=== PATIENT | male | born 1960 | race Caucasian/White ===

== ENCOUNTER 2023-02-02 04:36 | Emergency (ER) | payer BC, SELFPAY ==
--- NOTE | ~2023-02-02 | CT_ITS ---
EXAMINATION: CT ABDOMEN AND PELVIS WITHOUT CONTRAST CLINICAL INFORMATION: Left flank pain, history of stones COMPARISON: None available. TECHNIQUE: Multidetector volumetric imaging was performed from the superior aspect of the liver through the pubic symphysis. Sagittal and coronal reformatted images were obtained on the technologist's workstation. This CT examination was performed using dose optimization techniques as appropriate, variously including the following: *Automated exposure control *Adjustment of mA and/or kV according to patient size (this includes techniques or standardized protocols for targeted exams where dose is matched to indication/reason for exam; i.e. extremities or head) *Use of iterative reconstruction technique DLP: 936 mGy-cm FINDINGS: LUNG BASES: Minimal dependent atelectasis. Coronary artery calcifications are present. LIVER, GALLBLADDER, AND BILIARY TREE: The liver is normal in size, shape, and attenuation. No focal hepatic lesion or biliary ductal dilatation is identified on this noncontrast exam. The gallbladder is unremarkable with no evidence of radiopaque gallstones, gallbladder wall thickening, or obvious pericholecystic inflammatory changes. PANCREAS: Unremarkable. SPLEEN: Unremarkable. ADRENAL GLANDS: Left adrenal gland is unremarkable. There is a low-density right adrenal nodule measuring up to 3.5 cm, consistent with a lipid rich adenoma; no follow-up recommended. KIDNEYS AND URETERS: Distal ureters are obscured due to streak artifact in the pelvis. There is moderate left hydronephrosis with a 4 mm calculus at the left ureteropelvic junction. There is perinephric stranding as well as stranding extending along the course of the left ureter, and the possibility of a distal ureteral calculus cannot be excluded in this setting. No right hydronephrosis. Several bilateral renal calculi are present, measuring up to 9 mm in the left lower pole. BLADDER: Minimally distended, not adequately assessed due to streak artifact in the pelvis. GASTROINTESTINAL TRACT: Colonic diverticulosis is noted. The small and large bowel are otherwise unremarkable without evidence of obstruction or pericolonic inflammatory change. The appendix is unremarkable. No free fluid or free air is seen. ABDOMINAL WALL: No significant hernia is appreciated. LYMPH NODES: Normal. VASCULAR: There is atherosclerotic calcification along the aorta. PELVIC VISCERA: Unremarkable. OSSEOUS STRUCTURES: Multilevel degenerative changes in the spine. Partially visualized bilateral hip arthroplasty hardware. CT/CT abdomen pelvis wo IV con IMPRESSION: 1. Moderate left hydronephrosis with a 4 mm calculus at the ureteropelvic junction. There is also stranding extending along the course of the left ureter, and the possibility of a distal ureteral calculus cannot be excluded in this setting, as the distal ureter is not adequately assessed due to streak artifact in the pelvis.. 2. Several bilateral renal calculi. 3. Coronary artery calcifications. Correlation with cardiac risk factors is recommended.
[2023-02-02 04:42] VITALS: BP 157/89; PULSE 73; RESP 20; TEMP 36.4; O2SAT 93; BMI 36.3
[2023-02-02 05:05] LABS: Hematocrit 37.5 % (42.0-52.0); Hemoglobin 13.4 g/dl (14.0-18.0); Mean Corpuscular HGB Conc 35.7 g/dl (31.0-36.0); Mean Corpuscular Hemoglobin 34.6 pg (27.0-33.0); Mean Corpuscular Volume 96.9 fL (80.0-98.0); Mean Platelet Volume 9.9 fL (9.4-12.4); Platelet Count 195 X10*3/uL (160-400); Red Blood Count 3.87 X10*6/uL (4.60-5.80); Red Cell Distribution Width 12.9 % (11.0-16.0); White Blood Count 11.8 X10*3/uL (4.8-10.8)
--- OUTSIDE RECORDS SUMMARY | 2023-02-02 05:10 | XMS_ITS | Continuity of Care Document ---
Author Name Unknown Organization [facility] Address [address] [place] [id number] Care Team Providers Care Sheet Rock Taper Helper Name Role Phone Darryn FLANAGAN, Kelvin Garcia Primary Care Physician Encounter WAT_FIN [id number] Date(s): 10/19/22 - 10/19/22 [address] [id number]- Discharge Disposition: Discharged to Home or Self Care Attending Physician: Ayush Louise MD Allergies, Adverse Reactions, Alerts No Known Medication Allergies Assessment and Plan Future Scheduled Tests Radiology* MRI Spine Lumbar w/o Contrast 10/27/22 Functional Status 10/19/22 Weight 124.4 Living Situation Home with family car e Sensory Deficits Other: NONE Medications amLODIPine 10 mg oral tablet 0.5 tab, Oral, Daily, 5 mg daily due to swelling, # 15 tab, 0 Refill(s), called to pharmacy (Rx) Start Date: 01/15/20 Status: Ordered carvedilol 25 mg oral tablet 1 tab, Oral, BID, # 60 tab, 0 Refill(s) Start Date: 10/16/22 Status: Ordered chlorthalidone 50 mg oral tablet 1 tab, Oral, Daily with brkfst, # 90 tab, 0 Refill(s) Start Date: 10/16/22 Status: Ordered Dexilant 60 mg oral delayed release capsule 1 cap, Oral, Daily, # 30 cap, 0 Refill(s) Start Date: 02/26/19 Stop Date: 01/14/20 Status: Completed Ditropan XL 10 mg/24 hr oral tablet, extended release 1 tab, Oral, Daily, # 30 tab, 0 Refill(s) Start Date: 02/26/19 Status: Ordered Flomax 0.4 mg oral capsule 1 cap, Oral, Daily after brkfst, # 30 cap, 0 Refill(s) Start Date: 02/26/19 Status: Ordered Lipitor 20 mg oral tablet 1 tab, Oral, QBedtime, # 30 tab, 0 Refill(s) Start Date: 02/26/19 Status: Ordered lisinopril 40 mg oral tablet 1 tab, Oral, Daily, # 90 tab, 0 Refill(s) Start Date: 10/16/22 Status: Ordered Multiple Vitamins oral capsule 1 cap, Oral, Daily, # 30 cap, 0 Refill(s) Start Date: 02/26/19 Status: Ordered oxyCODONE 5 mg oral tablet 1 tab, Oral, Q6h, PRN pain, moderate, for post op carpal tunnel release, # 12 tab, 0 Refill(s), 11/17/22 12:00:00 CDT, Pharmacy: [facility], 180, cm, 10/16/22 9:31:00 CDT, Height, 124.4, kg, 10/16/22 9:31:00 CDT, Weight Start Date: 10/18/22 Stop Date: 11/17/22 Status: Ordered spironolactone 50 mg oral tablet 1 tab, Oral, Daily, # 90 tab, 0 Refill(s), Pharmacy: [facility] Start Date: 01/15/20 Status: Ordered Tenormin 100 mg oral tablet 0.5 tab, Oral, Daily, 1/2 tb daily due to bradycardia, # 15 tab, 0 Refill(s), called to pharmacy (Rx) Start Date: 01/15/20 Status: Ordered terbinafine 250 mg oral tablet TAKE 1 TABLET BY MOUTH ONCE DAILY Start Date: 10/16/22 Status: Ordered Tylenol 325 mg oral tablet 2 tab, Oral, Q4h, PRN pain, mild, 0 Refill(s) Start Date: 01/15/20 Status: Ordered Zyloprim 300 mg oral tablet 0.5 tab, Oral, Daily, # 15 tab, 0 Refill(s) Start Date: 02/26/19 Status: Ordered Problem List Condition Confirmation Course Effective Dates Status Health St atus Informant BPH (benign prostatic hyperplasia) Confirmed Active patient CTS (carpal tunnel syndrome) Confirmed Active patient Dyslipidemia Confirmed Active patient Former heavy tobacco smoker Confirmed Active patient 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 Hypertension Confirmed Active patient Procedures Procedure Date Related Diagnosis Body Site Status Catheterisation of left heart 1 Completed Joint replacement 2 Compl eted 1NO STENTS 2bil hips Vital Signs Most recent to oldest [Reference Range]: 1 2 3 Temperature Temporal Artery [36.1-37.9 Deg C] 35.8 Deg C *<LLOW* (10/19/22 7:45 AM) 36.0 Deg C *LOW* (10/19/22 5:27 AM) Peripheral Pulse Rate [55-100 bpm] 59 bpm (10/19/22 9:00 AM) 62 bpm (10/19/22 8:30 AM) 62 bpm (10/19/22 8:00 AM) Respiratory Rate [12-18 br/min] 16 br/min (10/19/22 9:00 AM) 16 br/min (10/19/22 8:30 AM) 16 br/min (10/19/22 8:00 AM) Blood Pressure [90-140/65-90 mmHg] 108/74mmHg (10/19/22 8:30 AM) 105/69mmHg (10/19/22 8:00 AM) 99/62mmHg (10/19/22 7:45 AM) Height [124-244 cm] 180 cm (10/19/22 5:13 AM) 180 cm (10/16/22 9:31 AM) Body Mass Index Measured 38.4 kg/m2 (10/19/22 5:13 AM) 38.4 kg/m2 (10/16/22 9:31 AM) 38.4 kg/m2 (10/16/22 9:31 AM) Social History Social History Type Response Tobacco 1) Have You Ever Use d a Tobacco Product? Yes. 2) Tobacco Product Within Last 30 Days? No, Quit Within the Last Year. 3) Type of Tobacco Product Cigarettes. 4) Tobacco Use Frequency: Daily. 5) Avg. Cigarette Per Day 10+. 6)Start Age 21 Years. 7) Stopped Year: 2021. Nicotine Products: None. Sex Hospital Discharge Instructions Patient Education 10/19/2022 07:12:19 Anesthesia Post Op Instructions (CUSTOM) Learning About Anesthesia What is anesthesia? There are different types of anesthesia. ??? Local anesthesia. This type numbs a small part of the body. Doctors use it for simple procedures. o You get a shot in the area the doctor will work on. o You will feel some pressure during the procedure. o You may stay awake. Or you may get medicine to help you relax or sleep. ??? Regional anesthesia. This type blocks pain to a larger area of the body. It can also help relieve pain right after surgery. And it may reduce your need for other pain medicine after surgery. There are different types. They include: o Peripheral nerve block. This is a shot near a specific nerve or group of nerves. It blocks pain in the part of the body supplied by the nerve. This is often used for procedures on the hands, arms, feet, legs, or face. o Epidural and spinal anesthesia. This is a shot near the spinal cord and the nerves around it. It blocks pain from an entire area of the body, such as the belly, hips, or legs. ??? General anesthesia. This type affects the brain and the whole body. You may get it through a small tube placed in a vein (IV). Or you may breathe it in. You are unconscious and will not feel pain. During the surgery, you will be comfortable. Later, you will not remember much about the surgery. What can you expect after having anesthesia? You may feel some of the effects of anesthesia for several hours. ??? If you had local or regional anesthesia you may feel numb and have less feeling in part of yourbody. It may also take a few hours for you to be able to move and control your muscles as usual. ??? When you first wake up from general anesthesia, you may be confused. Or it may be hard to thinkclearly. This is normal. It may take some time before the effects of the anesthesia are completely gone. Other common side effects of anesthesia include: ??? Nausea and vomiting. This does not usually last long. It can be treated with medicine. ??? A slight drop in body temperature. You may feel cold and shiver when you first wake up. ??? A sore throat, if you had general anesthesia. ??? Muscle aches or weakness. ??? Feeling tired. Things to be cautious of after having anesthesia ??? Do not drive or operate machinery for 24hrs after having anesthesia, or while on Narcotics ??? Start by eating something light/bland (ex.[place]) ??? Do not make any legal decisions for 24hrs after having anesthesia ??? If possible have someone stay with you for 24hrs after having anesthesia Follow-up care is a mclain part of your treatment and safety. Be sure to make and go to all appointments. Call your doctor if you are having problems such as: ??? Fever ??? Chills ??? Bleeding ??? Nausea and vomiting (unable to keep food or drink down) ??? Pain uncontroled by pain medication ??? Unable to urinate when you need to It's also a good idea to know your test results and keep a list of the medicines you take. Surgical operation note * Ayush Louise MD: PERFORM Event Display: Operative Note Authored Date: [id number] Patient: DWIGHT PERALES MRN: [id number] Age: 62 years Sex: Male : 1960 Associated Diagnoses: None Author: Ayush Louise MD Procedure Date of Surgery Date of Surgery: 10/19/22 07:21 . Procedure Notes PROCEDURE PERFORMED: LEFT ENDOSCOPIC CARPAL TUNNEL RELEASE PREOPERATIVE DIAGNOSIS: Left carpal tunnel syndrome, unresponsive to conservative management. POSTPROCEDURE DIAGNOSIS: Left carpal tunnel syndrome, unresponsive to conservative management. SURGEON: Ayush Louise MD ESTIMATED BLOOD LOSS: Minimal. PROCEDURAL FINDINGS: Compression within the carpal canal. TOURNIQUET TIME: 22 minutes TECHNIQUE AND FINDINGS: The patient was brought to the operating room and following adequate anesthesia, the left upper extremity was prepared and draped in the usual sterile fashion. The overlying surface anatomy was outlined and a transverse incision was made in the distal wrist crease sharply through skin. The subcutaneous tissue was bluntly dissected and the palmaris longus was retracted radially. An incision and flap in the distal forearm fascia was created, elevated and retracted. The carpal canal was entered with the hamate finders, the synovial elevator, and the dilator without significant difficulty. The endoscopic carpal tunnel release device was placed into the tunnel. The undersurface of the volar carpal ligament and its distal aspect was identified in its entirety. The blade was elevated and the device retracted completing a release of the volar carpal ligament. The blade was retracted and the device placed back within the canal and a complete release was confirmed. The proximal forearm fascia was isolated and released for 2-3 cm proximally. The nerve appeared intact throughout. A retractor was utilized to confirm a complete release visually. The wound was irrigated carefully and infiltratedwith sterile Marcaine and closed in routine fashion with 4-0 Monocryl suture subcutaneous and subcuticular. Steri-Strips were applied and a sterile bulky dressing was placed. The patient tolerated the procedure well. The tourniquet was deflated. No significant complications were encountered. . Estimated Blood Loss Estimated Blood Loss: . Specimens Removed Specimens Removed. Time Out [place] Protocol: patient identity verified, site verified, side verified, procedure to be done verified, patient position verified, availability of correct implants and special equipment or special requirements verified. Surgeon Surgeon: Primary Surgeon: Ayush Louise MD . Sweater Operator(s) Sweater Operator(s): Araseli Castillo (Physician Sweater Operator) . Pre-Op Diagnosis Pre-Op Diagnosis: LEFT CARPAL TUNNEL SYNDROME . Post-Op Diagnosis Post-Op Diagnosis: LEFT CARPAL TUNNEL SYNDROME . Procedure Primary Procedure: LEFT ENDOSCOPIC CARPAL TUNNEL RELEASE . Procedure Performed Preparation and technique: see above. Complications: None. Type of Anesthesia Type of Anesthesia: Anesthesia Type: IV Regional ([place] Block) . Drains Drains: . Findings Findings: See above . Disposition Disposition: Post-op Destination: PACU II . Note * Event Display: PDF DOCUMENT Please click on link to see image. History and physical note * Ayush Louise MD: PERFORM Event Display: History and Physicals Authored Date: History and Physical Update ( H&P completed within the previous thirty days ) I reviewed the salient orthopedic portions of the History and Physical, interviewed and examined the patient prior to surgery. The patient states: No significant changes have occurred in the their condition since the History and Physical was completed. The patient, after direct questioning, reports no changes in their health condition and no new health issues since their history and physical examination was performed. I reviewed the salient features of the history and physical examination and there history and orthopedic examination continues to confirm the necessity for the planned surgical intervention. I did not repeat any of their medical examination as that has not been a part of my scope of orthopedic practice. I am leaving the ultimatedecision for medical suitability for anesthesia to the discretion of the anesthesiologist assigned to this patient???s surgical case. Patient Care team information Care Team Personnel Name: Darryn FLANAGAN, Kelvin Garcia Position: Physician - Hospitalist Member Role: Primary Care Physician Address: Address: [address] [place] [id number]
--- OUTSIDE RECORDS SUMMARY | 2023-02-02 05:10 | XMS_ITS | Continuity of Care Document ---
Author Name Unknown Organization [facility] Address [address] [place] [id number] Encounter WAT_FIN [id number] Date(s): 01/14/20 - 01/15/[address] [address]- Encounter Diagnosis Hypokalemia(Discharge Diagnosis) - 01/14/20 Chest pain(Discharge Diagnosis) - 01/14/20 Discharge Disposition: Discharged to Home or Self Care Attending Physician: Denise Martin MD Allergies, Adverse Reactions, Alerts No Known Medication Allergies Assessment and Plan Extracted from: Title:ED Note Author:Tara Woodard MD Date: 1.??Hypokalemia 2.??Chest pain Orders: Cardiac Monitoring PSO Place in Outpatient Status Request for Bed Functional Status 01/14/20 ADLs Independent 01/14/20 Bathing Assistance Completely Independe nt Dressing Assistance Completely Independe nt Grooming Assistance Completely Independe nt Toileting Assistance Completely Independ ent Prior Transfer Level Completely Independ ent Functional Feeding Completely Independe nt Mobility Function Completely Independe nt Functional Urine Complete control Functional Bowels Complete control Functional Medication Adherence Complete ly Independent Functional Telephone Usage Completely In dependent Functional Shopping Completely Independe nt Functional Prepare Food Completely Indep endent Functional Housekeeping Completely Indep endent Functional Driving Completely Independe nt Functional Finances Completely Independe nt Medications amLODIPine 10 mg oral tablet 0.5 tab, Oral, Daily, 5 mg daily due to swelling, # 15 tab, 0 Refill(s), called to pharmacy (Rx) Start Date: 01/15/20 Status: Ordered Dexilant 60 mg oral delayed release capsule 1 cap, Oral, Daily, # 30 cap, 0 Refill(s), Pharmacy: [facility] Start Date: 01/15/20 Status: Ordered Dexilant 60 mg oral delayed [...] 0 Refill(s) Start Date: 02/26/19 Status: Ordered Multiple Vitamins oral capsule 1 cap, Oral, Daily, # 30 cap, 0 Refill(s) Start Date: 02/26/19 Status: Ordered spironolactone 50 mg oral tablet 1 tab, Oral, Daily, # 90 tab, 0 Refill(s), Pharmacy: [facility] Start Date: 01/15/20 Status: Ordered spironolactone-hydrochlorothiazide 25 mg-25 mg oral tablet 1 tab, Oral, Daily, # 30 tab, 0 Refill(s) Start Date: 02/26/19 Status: Ordered Tenormin 100 mg oral tablet 0.5 tab, Oral, Daily, 1/2 tb daily due to bradycardia, # 15 tab, 0 Refill(s), called to pharmacy (Rx) Start Date: 01/15/20 Status: Ordered Tylenol 325 mg oral tablet 2 tab, Oral, Q4h, PRN pain, mild, 0 Refill(s) Start Date: 01/15/20 Status: Ordered Zyloprim 300 mg oral tablet 0.5 tab, Oral, Daily, # 15 tab, 0 Refill(s) Start Date: 02/26/19 Status: Ordered Mental Status 01/14/20 Best Verbal Response Galt Oriented Best Motor Response Galt Obeys comman ds Eye Opening Response [place] Spontaneous ly Galt Coma Score 15 Problem List Condition Effective Dates Status Health Status Inform ant GERD (gastroesophageal reflu x disease)(Confirmed) Active patient Diagnosis Diagnosis Type Effective Dates Health Status Clini yony Service Informant Hypokalemia Discharge Diagnosis 01/14/20 Chest pain Discharge Diagnosis 01/14/20 Results Laboratory List Name Date Troponin I 01/14/20 Urinalysis W Reflex Microscopic (UA W Re flex Microscopic) 01/14/20 Automated Diff 01/14/20 CBC W Differential 01/14/20 Comprehensive Metabolic Panel (CMP) D Dimer 01/14/20 Magnesium Level 01/14/20 Most recent to oldest [Reference Range]: 1 WBC [4.00-10.50 x10^3/mcL] 6.94 x10^3/mc L (01/14/20 3:31 PM) RBC [3.80-6.10 x10^6/mcL] 4.42 x10^6/mcL (01/14/20 3:31 PM) BUN [9-23 mg/dL] 16 mg/dL (01/14/20 3:31 PM) Absolute Basophils Count Auto [0.01-0.09 x10^3/mcL] 0.04 x10^3/mcL (01/14/20 3:31 PM) MCV [79.0-95.0 fL] 95.7 fL *HI* (01/14/20 3:31 PM) Urobilinogen Urine [0.2-1.0 mg/dL] 1.0 m g/dL (01/14/20 9:25 PM) Bilirubin Urine [Negative] Negative (01/14/20 9:25 PM) Ketones Urine [Negative mg/dL] Negative mg/dL (01/14/20 9:25 PM) AST [12-40 IntlUnit/L] 18 IntlUnit/L (01/14/20 3:31 PM) ALT [7-40 IntlUnit/L] 21 IntlUnit/L (01/14/20 3:31 PM) Creatinine [0.6-1.3 mg/dL] 0.9 mg/dL (01/14/20 3:31 PM) MCHC [32.0-36.0 g/dL] 35.0 g/dL (01/14/20 3:31 PM) Troponin I [0.006-0.040 ng/mL] 0.012 ng/ mL (01/14/20 10:12 PM) Leukocyte Esterase Urine [Negative] Nega tive (01/14/20 9:25 PM) Nitrite Urine [Negative] Negative (01/14/20 9:25 PM) Glucose Urine [Negative mg/dL] Negative mg/dL (01/14/20 9:25 PM) Hematocrit [34.0-50.0 %] 42.3 % (01/14/20 3:31 PM) Absolute Monocytes Count Auto [0.10-0.70 x10^3/mcL] 0.68 x10^3/mcL (01/14/20 3:31 PM) Protein Urine [Negative mg/dL] Negative mg/dL (01/14/20 9:25 PM) MCH [25.0-33.0 pg] 33.5 pg *HI* (01/14/20 3:31 PM) Hemoglobin [13.2-16.6 g/dL] 14.8 g/dL (01/14/20 3:31 PM) MPV [9.4-12.4 fL] 10.6 fL (01/14/20 3:31 PM) Specific Fowler Urine [1.005-1.030] 1.0 17 (01/14/20 9:25 PM) CO2 [21-32 mmol/L] 29 mmol/L (01/14/20 3:31 PM) Absolute Eosinophils Count Auto [0.00-0. 30 x10^3/mcL] 0.39 x10^3/mcL *HI* (01/14/20 3:31 PM) RDW [11.5-14.5 %] 12.7 % (01/14/20 3:31 PM) pH Urine [5.0-8.0] 7.5 (01/14/20 9:25 PM) Appearance Urine [Clear] Cloudy *NA* (01/14/20 9:25 PM) eGFR [>=60 mg/dL] 86 mg/dL (01/14/20 3:31 PM) Bilirubin Total [0.3-1.2 mg/dL] 1.5 mg/d L *HI* (01/14/20 3:31 PM) Chloride Level [98-107 mmol/L] 101 mmol/ L (01/14/20 3:31 PM) Magnesium Level [1.6-2.6 mg/dL] 1.8 mg/d L (01/14/20 3:31 PM) Platelet Count [150-370 x10^3/mcL] 192 x 10^3/mcL (01/14/20 3:31 PM) Potassium Level [3.5-5.1 mmol/L] 3.2 mmo l/L *LOW* (01/14/20 3:31 PM) Sodium Level [136-145 mmol/L] 137 mmol/L (01/14/20 3:31 PM) Urinalysis Microscopic Indicated? No *NA* (01/14/20 9:25 PM) Albumin Level [3.4-5.0 g/dL] 4.6 g/dL (01/14/20 3:31 PM) Blood Urine [Negative] Negative (01/14/20 9:25 PM) Glucose Level [74-106 mg/dL] 104 mg/dL (01/14/20 3:31 PM) Absolute Lymphocytes Count Auto [1.00-3. 30 x10^3/mcL] 2.38 x10^3/mcL (01/14/20 3:31 PM) NRBC Percent [0.000-1.000 %] 0.000 % (01/14/20 3:31 PM) NRBC Absolute [0.0-0.2 x10^3/mcL] 0.0 x1 0^3/mcL (01/14/20 3:31 PM) Neutrophils Percent Auto [40.0-80.0 %] 4 9.4 % (01/14/20 3:31 PM) Lymphocytes Percent Auto [20.0-52.0 %] 3 4.3 % (01/14/20 3:31 PM) Monocytes Percent Auto [0.0-10.0 %] 9.8 % (01/14/20 3:31 PM) Eosinophils Percent Auto [0.0-8.0 %] 5.6 % (01/14/20 3:31 PM) Basophils Percent Auto [0.0-2.0 %] 0.6 % (01/14/20 3:31 PM) Absolute Neutrophils Count Auto [2.18-7. 80 x10^3/mcL] 3.43 x10^3/mcL (01/14/20 3:31 PM) D Dimer [0-500 ng/mL DDU] 267 ng/mL DDU (01/14/20 3:31 PM) Calcium Level [8.7-10.4 mg/dL] 10.0 mg/d L (01/14/20 3:31 PM) Alkaline Phosphatase [46-116 IntlUnit/L] 56 IntlUnit/L (01/14/20 3:31 PM) Slide Review Not Indicated *NA* (01/14/20 3:31 PM) Est CrCl AdjBW (mL/min)-RX 111.90 mL/min 1 (01/14/20 3:31 PM) Est CrCl IBW (mL/min)-RX 91.42 mL/min 2 (01/14/20 3:31 PM) Immature Granulocyte Percent Auto [0.0-0 .5 %] 0.3 % (01/14/20 3:31 PM) Absolute Immature Granulocyte Count Auto [0.00-0.10 x10^3/mcL] 0.02 x10^3/mcL (01/14/20 3:31 PM) Anion Gap [7-16 mmol/L] 7 mmol/L (01/14/20 3:31 PM) Total Protein [5.7-8.2 g/dL] 7.2 g/dL (01/14/20 3:31 PM) Color Urine [Yellow] Yellow (01/14/20 9:25 PM) 1Result Comment: Height = 180 cm Weight= 117 kg IBW = 74.99 kg AdjBW = 91.79 kg BMI = 36.11 Creatinine = 0.9 mg/dL If BMI > 30 use Adjusted Body Weight (AdjBW) AdjBW = 0.4(ActualBW - IBW)+IBW Estimated Creatinine Clearance (ml/min) Cockcroft Gault equation: CrCl = (140 - age) x AdjBW / (Cr x 72) (x 0.85 for females) Estimate [place] body weight in (kg) Male: IBW = 50 kg + 2.3 kg for each inch over 5 ft. Female: IBW = 45.5 kg + 2.3 kg for each inch over 5 ft. This CrCl is only calculated when Creatinine result is saved, and Height and Weight information is available. Not on Wt or Ht change. 2Result Comment: Height = 180 cm Weight= 117 kg IBW = 74.99 kg Creatinine = 0.9 mg/dL Estimated Creatinine Clearance (ml/min) Cockcroft Gault equation: CrCl = (140 - age) x IBW / (Scr x 72) (x 0.85 for females) Estimate [place] body weight in (kg) Males: IBW = 50 kg + 2.3 kg for each inch over 5 feet. Females: IBW = 45.5 kg + 2.3 kg for each inch over 5 feet. If actual weight is < IBW, use the actual weight. If CrCl <=0, show Missing Data . This CrCl is only calculated when Creatinine result is saved, and Height and Weight information is available. Not on Weight or Height change. Children < 2 years old will not show Est CrCl. Vital Signs Most recent to oldest [Reference Range]: 1 2 3 Temperature Oral [36.1-37.9 Deg C] 36.7 Deg C (01/15/20 12:52 PM) 36.8 Deg C (01/15/20 7:18 AM) 36.6 Deg C (01/15/20 5:26 AM) Peripheral Pulse Rate [55-100 bpm] 58 bpm (01/15/20 12:52 PM) 54 bpm *LOW* (01/15/20 5:26 AM) 47 bpm *LOW* (01/15/20 12:42 AM) Respiratory Rate [12-18 br/min] 16 br/min (01/15/20 12:52 PM) 20 br/min *HI* (01/15/20 7:18 AM) 16 br/min (01/15/20 5:26 AM) Blood Pressure [90-140/65-90 mmHg] 132/68mmHg (01/15/20 12:52 PM) 126/75mmHg (01/15/20 7:18 AM) 133/84mmHg (01/15/20 5:26 AM) Height [124-244 cm] 180 cm (01/14/20 6:12 PM) 180 cm (01/14/20 2:49 PM) Weight 126.2 kg (01/14/20 6:12 PM) 117 kg (01/14/20 2:49 PM) Body Mass Index Measured 39 kg/m2 (01/14/20 6:12 PM) 36.1 kg/m2 (01/14/20 2:49 PM) Social History Social History Type Response Tobacco 1) Have You Ever Use d a Tobacco Product? No. Sex Hospital Discharge Instructions Patient Education 01/15/2020 15:32:22 spironolactone spironolactone Pronunciation: spir ON oh LAK tone Brand: Aldactone What is the most important information I should know about spironolactone? You should not use spironolactone if you have kidney disease, high levels of potassium in your blood, Curtis's disease (an adrenal gland disorder), if you are unable to urinate, or if you are also taking eplerenone. In animal studies, spironolactone caused certain types of cancers or tumors. It is not known whether these effects would occur in people using this medicine. Ask your doctor about your risk. What is spironolactone? Spironolactone is a potassium-sparing diuretic (water pill) that prevents your body from absorbing too much salt and keeps your potassium levels from getting too low. Spironolactone is used to diagnose or treat a condition in which you have too much aldosterone in your body. Aldosterone is a hormone produced by your adrenal glands to help regulate the salt and water balance in your body. Spironolactone also treats fluid retention (edema) in people with congestive heart failure, cirrhosis of the liver, or a kidney disorder called nephrotic syndrome. This medication is also used to treat or prevent hypokalemia (low potassium levels in the blood). Spironolactone may also be used for purposes not listed in this medication guide. What should I discuss with my healthcare provider before taking spironolactone? You should not use spironolactone if you are allergic to it, or if you have: ??? kidney disease, or if you are unable to urinate; ??? [place]'s disease (an adrenal gland disorder); ??? high levels of potassium in your blood (hyperkalemia); or ??? if you are also taking eplerenone. To make sure spironolactone is safe for you, tell your doctor if you have: ??? liver disease; ??? heart disease; ??? an electrolyte imbalance (such as low levels of magnesium in your blood); or ??? if you take an NSAID (nonsteroidal anti-inflammatory drug), cholestyramine, heparin, lithium, heart or blood pressure medication, potassium supplements, steroid medicine, or another diuretic. In animal studies, spironolactone caused certain types of tumors, some of which were cancerous. However, very high doses are used in animal studies. It is not known whether these effects would occur in people using regular doses. Ask your doctor about your risk. It is not known whether spironolactone will harm an unborn baby. Tell your doctor if you are or plan to become . Spironolactone can pass into breast milk and may harm a nursing baby. You should not breast-feed while using this medicine. How should I take spironolactone? Follow all directions on your prescription label. Do not take this medicine in larger or smaller amounts or for longer than recommended. While using spironolactone, you may need frequent blood tests. This medication can cause unusual results with certain medical tests. Tell any doctor who treats you that you are using spironolactone. If you need surgery, tell the surgeon ahead of time that you are using spironolactone. You may needto stop using the medicine for a short time. If you are being treated for high blood pressure, keep using this medication even if you feel well.High blood pressure often has no symptoms. You may need to use blood pressure medication for the rest of your life. Store at room temperature away from heat, light, and moisture. What happens if I miss a dose? Take the missed dose as soon as you remember. Skip the missed dose if it is almost time for your next scheduled dose. Do not take extra medicine to make up the missed dose. What happens if I overdose? Seek emergency medical attention or call the Poison Help line at . What should I avoid while taking spironolactone? Drinking alcohol can increase certain side effects of spironolactone. Do not use salt substitutes or low-sodium milk products that contain potassium. These products could cause your potassium levels to get too high while you are taking spironolactone. Avoid a high-salt diet. Too much salt will cause your body to retain water, which may reduce the effectiveness of this medicine. Spironolactone may impair your thinking or reactions. Be careful if you drive or do anything that requires you to be alert. Avoid becoming overheated or dehydrated during exercise and in hot weather. Follow your doctor's instructions about the type and amount of liquids you should drink. In some cases, drinking too much liquid can be as unsafe as not drinking enough. What are the possible side effects of spironolactone? Get emergency medical help if you have signs of an allergic reaction: hives; difficulty breathing; swelling of your face, lips, tongue, or throat. Stop using spironolactone and call your doctor at once if you have: ??? signs of stomach bleeding --bloody or tarry stools, coughing up blood or vomit that looks like coffee grounds; ??? high potassium --slow heart rate, weak pulse, muscle weakness or limp feeling, tingly feeling; ??? low sodium --confusion, slurred speech, hallucinations, severe weakness, loss of coordination, feeling unsteady, seizure (convulsions), fainting, shallow breathing (breathing may stop); or ??? symptoms of any electrolyte imbalance --dry mouth, increased thirst, drowsiness, lack of energy, restless feeling, confusion, nausea, vomiting, increased urination, muscle cramps or weakness, fast heart rate, little or no urinating, or feeling like you might pass out. Common side effects may include: ??? mild nausea or vomiting, diarrhea; ??? breast swelling or tenderness; ??? dizziness, headache, mild drowsiness; ??? leg cramps; or ??? impotence, difficulty having an erection. This is not a complete list of side effects and others may occur. Call your doctor for medical advice about side effects. You may report side effects to FDA at 3-148-WPZ-4142. What other drugs will affect spironolactone? Taking this medicine with other drugs that make you dizzy or lower your blood pressure can worsen these effects. Ask your doctor before taking spironolactone with a narcotic pain medicine, muscle relaxer, or medicine for anxiety or seizures. Other drugs may interact with spironolactone, including prescription and yejo-zdd-uokasso medicines, vitamins, and herbal products. Tell each of your health care providers about all medicines you usenow and any medicine you start or stop using. Where can I get more information? Your pharmacist can provide more information about spironolactone. Remember, keep this and all other medicines out of the reach of children, never share your medicines with others, and use this medication only for the indication prescribed. Every effort has been made to ensure that the information provided by [employer]. [employer]') is accurate, up-to-date, and complete, but no guarantee is made to that effect. Drug information contained herein may be time sensitive. [employer] information has been compiled for use by healthcare practitioners and consumers in the [place] and therefore [employer] does not warrant that uses outside of the [place] are appropriate, unless specifically indicated otherwise. [employer] drug information does not endorse drugs, diagnose patients or recommend therapy. [employer] drug information isan informational resource designed to assist licensed healthcare practitioners in caring for their p atients and/or to serve consumers viewing this service as a supplement to, and not a substitute for, the expertise, skill, knowledge and judgment of healthcare practitioners. The absence of a warningfor a given drug or drug combination in no way should be construed to indicate that the drug or drug combination is safe, effective or appropriate for any given patient. [employer] does not assume any responsibility for any aspect of healthcare administered with the aid of information [employer] provides. The information contained herein is not intended to cover all possible uses, directions, precautions, warnings, drug interactions, allergic reactions, or adverse effects. If you have questions about the drugs you are taking, check with your doctor, nurse or pharmacist. Copyright 1249-8896 [employer]. Version: 9.03. Revision date: 04/07/2015. 01/15/2020 15:12:41 Chest Pain: Musculoskeletal Musculoskeletal Chest Pain: Care Instructions Your Care Instructions Chest pain is not always a sign that something is wrong with your heart or that you have another serious problem. The doctor thinks your chest pain is caused by strained muscles or ligaments, inflamed chest cartilage, or another problem in your chest, rather than by your heart. You may need more tests to find the cause of your chest pain. Follow-up care is a mclain part of your treatment and safety. Be sure to make and go to all appointments, and call your doctor if you are having problems. It???s also a good idea to know your test results and keep a list of the medicines you take. How can you care for yourself at home? Take pain medicines exactly as directed. o If the doctor gave you a prescription medicine for pain, take it as prescribed. o If you are not taking a prescription pain medicine, ask your doctor if you can take an pczw-tbu-plxfbly medicine. ??? Rest and protect the sore area. ??? Stop, change, or take a break from any activity that may be causing your pain or soreness. ??? Put ice or a cold pack on the sore area for 10 to 20 minutes at a time. Try to do this every 1 to 2 hours for the next 3 days (when you are awake) or until the swelling goes down. Put a thin cloth between the ice and your skin. ??? After 2 or 3 days, apply a heating pad set on low or a warm cloth to the area that hurts. Some doctors suggest that you go back and forth between hot and cold. ??? Do not wrap or tape your ribs for support. This may cause you to take smaller breaths, which could increase your risk of lung problems. ??? Mentholated creams such as Bengay or Icy Hot may soothe sore muscles. Follow the instructions on the package. ??? Follow your doctor's instructions for exercising. ??? Gentle stretching and massage may help you get better faster. Stretch slowly to the point just before pain begins, and hold the stretch for at least 15 to 30 seconds. Do this 3 or 4 times a day. Stretch just after you have applied heat. ??? As your pain gets better, slowly return to your normal activities. Any increased pain may be a sign that you need to rest a while longer. When should you call for help? Call 911 anytime you think you may need emergency care. For example, call if: ??? You have chest pain or pressure. This may occur with: o Sweating. o Shortness of breath. o Nausea or vomiting. o Pain that spreads from the chest to the neck, jaw, or one or both shoulders or arms. o Dizziness or lightheadedness. o A fast or uneven pulse. After calling 911, chew 1 adult-strength aspirin. Wait for an ambulance. Do not try to drive yourself.??? You have sudden chest pain and shortness of breath, or you cough up blood. Call your doctor now or seek immediate medical care if: ??? You have any trouble breathing. ??? Your chest pain gets worse. ??? Your chest pain occurs consistently with exercise and is relieved by rest. Watch closely for changes in your health, and be sure to contact your doctor if: ??? Your chest pain does not get better after 1 week. Where can you learn more? Go to https://www.[employer].net/patientEd. Enter V293 in the search box to learn more about Musculoskeletal Chest Pain: Care Instructions. ?? [id number] [employer]. Care instructions adapted under license by your healthcare professional. If you have questions about a medical condition or this instruction, always ask your healthcare professional. [employer] disclaims any warranty or liability for your use of this information. Content Version: 11.0; Current as of: October 01, 2015
--- OUTSIDE RECORDS SUMMARY | 2023-02-02 05:10 | XMS_ITS | Continuity of Care Document ---
Author Name Unknown [facility] Address [address] [place] [id number] Care Team Providers Care Associate Software Application Engineer Name Role Phone Physician, PCP Unknown Primary Care Physician Un available Encounter [email or web address] [id number] Date(s): 03/01/19 - 03/01/[address] [address]- Discharge Disposition: Discharged to Home or Self Care Attending Physician: Steven Yeager MD Allergies, Adverse Reactions, Alerts No Known Medication Allergies Functional Status 03/01/19 Living Situation Home independent Medications Dexilant 60 mg oral delayed release capsule 1 cap, Oral, Daily, # 30 cap, 0 Refill(s) Start Date: 02/26/19 Status: Ordered Ditropan XL 10 mg/24 hr oral tablet, [...] 0 Refill(s) Start Date: 02/26/19 Status: Ordered spironolactone-hydrochlorothiazide 25 mg-25 mg oral tablet 1 tab, Oral, Daily, # 30 tab, 0 Refill(s) Start Date: 02/26/19 Status: Ordered Tenormin 100 mg oral tablet 1 tab, Oral, Daily, # 30 tab, 0 Refill(s) Start Date: 02/26/19 Status: Ordered Zyloprim 300 mg oral tablet 0.5 tab, Oral, Daily, # 15 tab, 0 Refill(s) Start Date: 02/26/19 Status: Ordered Problem List Condition Effective Dates Status Health Status Inform ant GERD (gastroesophageal reflu x disease)(Confirmed) Active patient Vital Signs Most recent to oldest [Reference Range]: 1 2 3 Temperature Temporal Artery [36.1-37.9 Deg C] 36.8 Deg C (03/01/19 7:45 AM) Peripheral Pulse Rate [55-100 bpm] 52 bpm *LOW* (03/01/19 9:30 AM) 51 bpm *LOW* (03/01/19 9:15 AM) 54 bpm *LOW* (03/01/19 9:00 AM) Respiratory Rate [12-18 br/min] 18 br/min (03/01/19 7:45 AM) Blood Pressure [90-140/65-90 mmHg] 165/98mmHg *HI* (03/01/19 9:30 AM) 130/81mmHg (03/01/19 9:15 AM) 141/87mmHg *HI* (03/01/19 9:00 AM) Height [124-244 cm] 177.8 cm (03/01/19 7:40 AM) Weight 118 kg (03/01/19 7:40 AM) Body Mass Index Measured 37.3 kg/m2 (03/01/19 7:40 AM) Social History Social History Type Response Tobacco 1) Have You Ever Use d a Tobacco Product? No. Sex Hospital Discharge Instructions Patient Education 03/01/2019 10:17:53 EGD (Upper Endoscopy): Post-op Upper GI Endoscopy: What to Expect at Home Your Recovery After you have an endoscopy, you will stay at the hospital or clinic for 1 to 2 hours. This will allow the medicine to wear off. You will be able to go home after your doctor or nurse checks to make sure you are not having any problems. You may have to stay overnight if you had treatment during the test. You may have a sore throat fora day or two after the test. This care sheet gives you a general idea about what to expect after the test. How can you care for yourself at home? Activity ??? Rest as much as you need to after you go home. ??? You should be able to go back to your usual activities the day after the test. Diet ??? Follow your doctor's directions for eating after the test. ??? Drink plenty of fluids (unless your doctor has told you not to). Medications ??? If you have a sore throat the day after the test, use an [id number]-ihbjrox spray to numb your throat. Follow-up care is a mclain part of your treatment and safety. Be sure to make and go to all appointments, and call your doctor if you are having problems. It's also a good idea to know your test resultsand keep a list of the medicines you take. When should you call for help? Call 911 anytime you think you may need emergency care. For example, call if: ??? You passed out (lost consciousness). ??? You cough up blood. ??? You vomit blood or what looks like coffee grounds. ??? You pass maroon or very bloody stools. Call your doctor now or seek immediate medical care if: ??? You have trouble swallowing. ??? You have belly pain. ??? Your stools are black and tarlike or have streaks of blood. ??? You are sick to your stomach or cannot keep fluids down. Watch closely for changes in your health, and be sure to contact your doctor if: ??? Your throat still hurts after a day or two. ??? You do not get better as expected. Where can you learn more? Go to https://www.[employer].net/patientEd. Enter J454 in the search box to learn more about Upper GI Endoscopy: What to Expect at Home. ?? [id number] [employer]. Care instructions adapted under license by your healthcare professional. If you have questions about a medical condition or this instruction, always ask your healthcare professional. [employer] disclaims any warranty or liability for your use of this information. Content Version: 11.0; Current as of: March 26, 2015
--- NOTE | 2023-02-02 05:13 | ED_ITS ---
HPI - Abdominal Pain General Chief Complaint: Abdominal Pain Stated Complaint: ?Kidney stones Time Seen by Provider: 02/02/23 05:05 Source: patient Mode of arrival: ambulatory Limitations: no limitations History of Present Illness HPI narrative: Patient comes in the emergency room complaining of left-sided flank pain started approximately 8 hours ago. Patient states that he has not had any hematuria or dysuria. Patient complaining of nausea and chills. Patient states that 15 years ago he had kidney stones 3 times, states the pain is similar. Related Data Previous Rx's Medication Instructions Recorded acetaminophen 500 mg tablet 500 mg PO QID PRN fever or pain 02/02/23 #20 tabs oxycodone 5 mg tablet 5 mg PO BEDTIME PRN pain #5 tabs 02/02/23 tamsulosin 0.4 mg capsule (Flomax) 0.4 mg PO DAILY #7 caps 02/02/23 Allergies Allergy/AdvReac Type Severity Reaction Status Date / Time No Known Allergies Allergy Verified 02/02/23 04:50 Review of Systems Review of Systems Constitutional : No Weight loss, No Fever, No Chills, No Night Sweats, No Fatigue, No Malaise ENT/Mouth : No Hearing loss, No Ear Pain, No Nasal Congestion, No Sinus Pain, No Hoarseness, No sore throat, No Rhinorrhea, No Swallowing Difficulty Eyes: No Eye Pain, No Swelling, No Redness, No Foreign Body, No Discharge, No Vision Changes Cardiovascular : No Chest Pain, No SOB, No Dyspnea on Exertion, No Orthopnea, No Edema, No Palpitations Respiratory : No Cough, No Sputum, No Wheezing, No Smoke Exposure, No Dyspnea Gastrointestinal : Complaining of Nausea, No Vomiting, No Diarrhea, No Constipation, No abdominal Pain, No Hematochezia, No Melena Genitourinary : no irregular bleeding, No Dysuria, No Urinary Frequency, No Hematuria, No Urinary Incontinence, No Urgency, complaining of left-sided Flank Pain, No Urinary Flow Changes, No Hesitancy Musculoskeletal : No joint pain, No Myalgias, No Joint Swelling Skin : No Skin Lesions, No rash Neuro : No Weakness, No Numbness, No Paresthesias, No Loss of Consciousness, No Dizziness, No Headache Psych : No Anxiety/Panic, No Depression, No SI/HI/AH/VH, No Social Issues, Heme/Lymph: No Bruising, No Bleeding,No Lymphadenopathy Endocrine : No Polyuria, No Polydipsia, No Temperature Intolerance [facility] Past Medical History Medical History (Updated 02/02/23 @ 07:20 by Sandi Nunez MD) Kidney stone Hypertension Social History Social History Alcohol intake: never Smoked in Last 30 Days: No Use of substances other than those prescribed or required for medical reasons: No Advance Directives: No Advance Directives Information Provided: Yes Physical Exam ED Vital Signs: Vital Signs - 24 hr 02/02/23 04:42 02/02/23 06:05 Temperature 97.5 F 97.9 F Pulse Rate 73 74 Respiratory Rate 20 14 Blood Pressure 157/89 H 118/63 Pulse Oximetry 93 95 Oxygen Delivery Method Room Air Room Air BMI result Body Mass Index 36.3 Const Other: Appearance: Alert. Oriented X3. No acute distress. Eyes: Pupils equal, round and reactive to light. ENT: Pharynx normal. Neck: Normal inspection. Neck supple. No lymph nodes noted. No crepitus CVS: Normal heart rate and rhythm. Pulses normal. Normal S1 and S2 Respiratory: No respiratory distress. Breath sounds normal. No Wheezing. No rales Abdomen: Soft and nontender. No rigidity. No distention. Positive CVA tenderness on the left Skin: Skin warm and dry. Normal skin color. Normal skin turgor. Extremities: No lower extremity edema. No Lacerations. No Rash Neuro: Oriented X 3. No motor deficit. No sensory deficit. Moving all extremities. No slurred speech. CN 2 through 12 grossly intact Psych: calm, cooperative, normal affect Course Course Course Narrative: -patient very uncomfortable on arrival, patient given IV ketorolac -all of patient's labs and imaging pending Medical Decision Making Medical Decision Making MDM Narrative: -patient's white blood cell count 11.8, likely reactive leukocytosis. -my interpretation of labs, creatinine 1.53, patient receiving IV fluids, will recheck labs after fluids. -my interpretation of CT scan: 4 mm stone in the UPJ -I discussed with the patient that his creatinine level is slightly bumped. Patient was giving IV fluids. Patient was given ketorolac before the labs resulted. -patient is visiting from [place], patient will be driving all day today. -I discussed the plan and the labs with the patient and his . Patient cannot drive after taking narcotics in NSAIDs are contraindicated for acute kidney injury. Plan: Patient will be taking Tylenol during the day, and a cottage to be taking only at bedtime. Patient and agree with plan -patient has an appointment with his primary care physician in [place] in 1 week Differential Diagnosis Differential Diagnoses: The differential diagnosis associated with the presentation includes (UTI, pyelonephritis, renal colic, utero lithiasis) Admission/Observation Consideration of admission/observation: Escalation of care including admission/observation considered (Patient uncomfortable on arrival, likely kidney stone, admission considered) Lab Data MDM Lab Attestation statement: I reviewed the patient's lab results. 02/02/23 05:00 02/02/23 05:00 Labs: Lab Results 02/02/23 02/02/23 Range/Units 05:00 05:34 WBC 11.8 H (4.8-10.8) X10*3/uL RBC 3.87 L (4.60-5.80) X10*6/uL Hgb 13.4 L (14.0-18.0) g/dl Hct 37.5 L (42.0-52.0) % MCV 96.9 (80.0-98.0) fL MCH 34.6 H (27.0-33.0) pg MCHC 35.7 (31.0-36.0) g/dl RDW 12.9 (11.0-16.0) % Plt Count 195 (160-400) X10*3/uL MPV 9.9 (9.4-12.4) fL Absolute Nucleated RBC 0.000 (0.0-0.012) X10*3/uL Nucleated RBC % (auto) 0.0 (0.0-0.2) /100WBC Sodium 137 (135-145) mmol/L Potassium 3.5 (3.3-5.1) mmol/L Chloride 102 (96-108) mmol/L Carbon Dioxide 21 L (22-29) mmol/L Anion Gap 18 (12-20) BUN 25 H (9-16) mg/dL Creatinine 1.53 H (0.5-1.4) mg/dL Estim Creat Clear Calc 63.7 Estimated GFR 46 Random Glucose 172 H (60-115) mg/dL Calcium 10.0 (8.4-10.2) mg/dL Total Bilirubin 0.7 (0.0-1.0) mg/dL AST 14 (5-37) U/L ALT 16 (0-40) U/L Alkaline Phosphatase 56 (39-117) U/L Total Protein 7.3 (6.5-8.0) g/dL Albumin 4.3 (3.5-5.0) g/dL Lipase 15 (8-78) U/L Urine Color Yellow Urine Appearance Clear Urine pH 5.5 (5.0-9.0) Ur Specific [place] 1.020 (1.005-1.025) Urine Protein Negative (Neg-Trace) mg/dL Urine Glucose (UA) Negative (Negative) mg/dL Urine Ketones Negative (Negative) mg/dL Urine Blood Moderate (2+) H (Negative) Urine Nitrite Negative (Negative) Ur Leukocyte Esterase Negative (Negative) Urine RBC >20 H (0-2) /HPF Urine WBC 0-5 (0-5) /HPF Ur Squamous Epith Cells 0-2 (0-2) /HPF Urine Bacteria None Seen (None Seen) Hyaline Casts 0-2 (0-2) /LPF Independent Interpretation I performed an independent interpretation of an: CT Scan Radiology Impression Discussion of test interpretation with radiology: I have reviewed the radiologist's reading. Radiologist Impression: FINDINGS: LUNG BASES: Minimal dependent atelectasis. Coronary artery calcifications are present. LIVER, GALLBLADDER, AND BILIARY TREE: The liver is normal in size, shape, and attenuation. No focal hepatic lesion or biliary ductal dilatation is identified on this noncontrast exam. The gallbladder is unremarkable with no evidence of radiopaque gallstones, gallbladder wall thickening, or obvious pericholecystic inflammatory changes. PANCREAS: Unremarkable. SPLEEN: Unremarkable. ADRENAL GLANDS: Left adrenal gland is unremarkable. There is a low-density right adrenal nodule measuring up to 3.5 cm, consistent with a lipid rich adenoma; no follow-up recommended. KIDNEYS AND URETERS: Distal ureters are obscured due to streak artifact in the pelvis. There is moderate left hydronephrosis with a 4 mm calculus at the left ureteropelvic junction. There is perinephric stranding as well as stranding extending along the course of the left ureter, and the possibility of a distal ureteral calculus cannot be excluded in this setting. No right hydronephrosis. Several bilateral renal calculi are present, measuring up to 9 mm in the left lower pole. BLADDER: Minimally distended, not adequately assessed due to streak artifact in the pelvis. GASTROINTESTINAL TRACT: Colonic diverticulosis is noted. The small and large bowel are otherwise unremarkable without evidence of obstruction or pericolonic inflammatory change. The appendix is unremarkable. No free fluid or free air is seen. ABDOMINAL WALL: No significant hernia is appreciated. LYMPH NODES: Normal. VASCULAR: There is atherosclerotic calcification along the aorta. PELVIC VISCERA: Unremarkable. OSSEOUS STRUCTURES: Multilevel degenerative changes in the spine. Partially visualized bilateral hip arthroplasty hardware. CT/CT abdomen pelvis wo IV con IMPRESSION: 1. Moderate left hydronephrosis with a 4 mm calculus at the ureteropelvic junction. There is also stranding extending along the course of the left ureter, and the possibility of a distal ureteral calculus cannot be excluded in this setting, as the distal ureter is not adequately assessed due to streak artifact in the pelvis.. 2. Several bilateral renal calculi. 3. Coronary artery calcifications. Correlation with cardiac risk factors is recommended. Medications Administered Discontinued Medications Generic Name Dose Route Start Last Admin Trade Name Freq PRN Reason Stop Dose Admin Sodium Chloride 1,000 mls @ 999 mls/hr 02/02/23 05:12 02/02/23 05:40 Ns IVCONT 02/02/23 06:12 999 mls/hr .Q1H1M ONE Administration Ketorolac Tromethamine 30 mg 02/02/23 05:12 02/02/23 05:40 Ketorolac Tromethamine 30 Mg/Ml Vial IVPUSH 02/02/23 05:13 30 mg ONCE ONE Administration Ondansetron HCl 4 mg 02/02/23 05:12 02/02/23 05:40 Ondansetron Hcl 4 Mg/2 Ml Vial IVPUSH 02/02/23 05:13 4 mg ONCE ONE Administration Critical Care Time Critical Care Time Critical Care Time: Yes Total Critical Care Time: 60 Attestation: I have personally provided critical care time. Time includes review of lab data, radiology results, discussion with consultants, and monitoring for potential decompensation. Intervention performed as documented. Discharge Plan Discharge Clinical Impression: Kidney stone, Acute kidney injury Patient Disposition: Home, Self-Care Instructions: Acute Kidney Injury (DC), Kidney Stones (ED) Additional Instructions: Do not use narcotics when your driving. Only use this medications at bedtime. Do not use ibuprofen, naproxen since you have an acute kidney injury (elevated creatinine). Use only Tylenol during the daytime. Please follow-up with your primary care physician tomorrow. If you have any worsening or new symptoms, please return to the emergency room or call 911 Prescriptions: New oxycodone 5 mg tablet 5 mg PO BEDTIME PRN (Reason: pain) Qty: 5 0RF Rx Instructions: Partial Fill upon patient request. acetaminophen 500 mg tablet 500 mg PO QID PRN (Reason: fever or pain) Qty: 20 0RF tamsulosin [Flomax] 0.4 mg capsule 0.4 mg PO DAILY Qty: 7 0RF
[2023-02-02 05:18] LABS: Alanine Aminotransferase 16 U/L (0-40); Albumin Level 4.3 g/dL (3.5-5.0); Alkaline Phosphatase 56 U/L (39-117); Anion Gap 18 (12-20); Aspartate Amino Transferase 14 U/L (5-37); Bilirubin Total 0.7 mg/dL (0.0-1.0); Blood Urea Nitrogen 25 mg/dL (9-16); Carbon Dioxide 21 mmol/L (22-29); Chloride 102 mmol/L (96-108); Creatinine Clr Calc Pharmacy 63.7; Estimated Glomerular Filt Rate 46; Glucose Random 172 mg/dL (60-115); Lipase 15 U/L (8-78); Potassium 3.5 mmol/L (3.3-5.1); Sodium 137 mmol/L (135-145); Total Protein 7.3 g/dL (6.5-8.0)
[2023-02-02 05:37] LABS: Appearance Urine Clear; Color Urine Yellow; Glucose Urine UA Negative (Negative); Leukocyte Esterase Urine Negative (Negative); Nitrite Urine Negative (Negative); PH 5.5 (5.0-9.0); UMIC TRIGGER UACC YES; Urine Blood Moderate (2+) (Negative); Urine Ketones Negative (Negative); Urine Protein Negative (Neg-Trace)
[2023-02-02] MEDS: 0.9 % Sodium Chloride 1,000 ML 999 ML IVCONT (05:40)
[2023-02-02] MEDS: Ketorolac Tromethamine 30 MG/ML VIAL IVPUSH (05:40)
[2023-02-02] MEDS: ondansetron HCL 4 MG/2 ML VIAL IVPUSH (05:40)
[2023-02-02 05:41] LABS: Bacteria Urine None Seen (None Seen); Hyaline Casts Urine 0-2 /LPF (0-2); RBC Urine >20 /HPF (0-2); Squamous Epithelial Cell Urine 0-2 /HPF (0-2); WBC Urine 0-5 /HPF (0-5)
[2023-02-02 06:05] VITALS: BP 118/63; PULSE 74; RESP 14; TEMP 36.6; O2SAT 95
[2023-02-02] MEDS: Acetaminophen 325 MG TABLET 975 MG PO (07:15)
[2023-02-02 07:16] VITALS: BP 126/74; PULSE 74; RESP 16; O2SAT 96
== END 2023-02-02 07:43 | disposition home or self-care (01) ==
PROVIDERS: Emergency Provider Emergency Medicine
DX: N13.2 Hydronephrosis with renal and ureteral calculous obstruction (principal); N17.9 Acute kidney failure, unspecified; I10 Essential (primary) hypertension; Z87.442 Personal history of urinary calculi
CPT/HCPCS: 36415; 74176; 80053; 81001; 83690; 85027; 96361; 96374; 96375; 99284; J1885; J2405